=== PATIENT | female | born 1990 | race Caucasian/White ===

== ENCOUNTER 2018-07-29 17:38 | Emergency (ER) | payer OTHER ==
[2018-07-29] MEDS ORDERED: KETOROLAC 30 MG/ML VIAL IVP ONE (17:45)
[2018-07-29] MEDS ORDERED: 0.9 % SODIUM CHLORIDE 1,000 ML BAG IV ONE (17:45)
--- NOTE | 2018-07-29 17:50 | Emergency Department Record ---
History of Present Illness - General Chief Complaint: Abdominal Pain Stated Complaint: abdominal pain Time Seen by Provider: 07/29/18 17:43 Source: Patient Mode of Arrival: Ambulatory Limitations: No limitations - History of Present Illness Initial Comments: 27 yo female presents with LLQ pain that started Sunday morning. The pain has been fairly constant. The pain is sharp in nature. No current vaginal bleeding or discharge. No hematuria or dysuria. No fevers. No current PCP or APPLICATION CONSULTANT. She does have an Nexplanon. Her cycles historically have been irregular. MD Complaint: Abdominal pain -: Days(s) (3) Location: LLQ Radiation: LLQ Migration to: LLQ Quality: Sharp, Stabbing Consistency: Constant Improves With: Rest Worsens With: Movement Context: Other Associated Symptoms: Denies other symptoms - Related Data Patient : No Previous Rx's Medication Instructions Recorded Metronidazole [Flagyl] 500 mg PO BID #14 tablet 07/29/18 Naproxen [Naprosyn] 500 mg PO Q12H #20 tab. 07/29/18 Allergies Allergy/AdvReac Type Severity Reaction Status Date / Time Sulfa (Sulfonamide Allergy ANAPHYLAXIS Verified 07/29/18 17:47 Antibiotics) Review of Systems Constitutional: Denies: Chills, Fever, Malaise, Weakness Eyes: Denies: Eye discharge ENT: Denies: Congestion, Ear pain, Throat pain Respiratory: Denies: Cough, Dyspnea Cardiovascular: Denies: Chest pain Endocrine: Denies: Fatigue Gastrointestinal: Reports: As per HPI, Abdominal pain. Denies: Diarrhea, Nausea , Vomiting Genitourinary: Reports: Abnormal menses. Denies: Discharge, Dysuria, Hematuria , Incontinence, Retention, Urgency Musculoskeletal: Denies: Arthralgia, Back pain, Joint swelling, Myalgia, Neck pain Skin: Denies: Bruising, Rash Neurological: Denies: Headache, Weakness Psychiatric: Denies: Anxiety Hematological/Lymphatic: Denies: Blood Clots, Easy bleeding, Easy bruising, Swollen glands Physical Exam - General General Appearance: Alert, Oriented x3, Cooperative, No acute distress Limitations: No limitations - Head Head exam: Atraumatic, Normal inspection - Eye Eye exam: Normal appearance. negative: Conjunctival injection - ENT ENT exam: Normal exam, Mucous membranes moist Ear exam: Normal external inspection Nasal Exam: Normal inspection Mouth exam: Normal external inspection - Neck Neck exam: Normal inspection - Respiratory Respiratory exam: Normal lung sounds bilaterally. negative: Respiratory distress - Cardiovascular Cardiovascular Exam: Regular rate, Normal rhythm, Normal heart sounds - GI/Abdominal GI/Abdominal exam: Soft, Guarding, Tenderness, Other (Very soft abdomen but tender in the LLQ (only). No mass or hernia). negative: Distended - exam: Adnexal tenderness (L), Normal external exam, Normal speculum exam, Vaginal bleeding (spotting). negative: Adnexal mass (L), Adnexal mass (R), Cervical discharge, cervical motion tenderness, Vaginal discharge, Vaginal erythema - Extremities Extremities exam: Normal inspection - Back Back exam: Denies: CVA tenderness (R), CVA tenderness (L) - Neurological Neurological exam: Alert, Oriented X3 - Psychiatric Psychiatric exam: Normal affect, Normal mood. negative: Agitated, Anxious - Skin Skin exam: Dry, Intact, Normal color, Warm Course - Reevaluation(s) Reevaluation #1: The CBC was negative The CMP was negative The UA is positive for blood, no signs of infection UCG is negative The Wet prep demonstrated few clue cells. 07/29/18 18:34 07/29/18 19:01 The US demonstrated 3.8cm LOC. Normal arterial and venous flow. Irregular lower uterine segment. No FF. Medical Decision Making - Lab Data Result diagrams: 07/29/18 18:05 07/29/18 18:05 Disposition Disposition: Discharge Clinical Impression: Bacterial vaginosis, Pelvic pain, Left ovarian cyst Disposition: Home, Self-Care Condition: (1) Good Instructions: Bacterial Vaginosis (ED), Ovarian Cyst (ED) Additional Instructions: Call the family practice number a new family doctor Return or be seen if worse, fever, vomiting, diarrhea, or any new concerns Prescriptions: Metronidazole [Flagyl] 500 mg PO BID #14 tablet Naproxen [Naprosyn] 500 mg PO Q12H #20 tab.dr Referrals: TERRA BROWN M.D. [MEDICAL DOCTOR] - Rani Keith D.O. [DOCTOR OF OSTEOPATH] - Forms: Patient Portal Access Time of Disposition: 19:06 Quality - Quality Measures Quality Measures: N/A - Blood Pressure Screening Does Patient Have Any of the Following: No Blood Pressure Classification: Pre-Hypertensive BP Reading Systolic Measurement: 128 Diastolic Measurement: 77 Screening for High Blood Pressure: < Pre-Hypertensive BP, F/U Documented > [ G8950] Pre-Hypertensive Follow-up Interventions: Referral to alternative/primary care provider.
[2018-07-29 18:16] LABS: URINE APPEARANCE CLEAR; URINE BILIRUBIN NEGATIVE (NEGATIVE); URINE BLOOD SMALL (NEGATIVE); URINE COLOR YELLOW; URINE GLUCOSE (UA) NEGATIVE (NEGATIVE); URINE KETONE NEGATIVE (NEGATIVE); URINE LEUKOCYTE ESTERASE NEGATIVE (NEGATIVE); URINE NITRITE NEGATIVE (NEGATIVE); URINE PROTEIN NEGATIVE (NEGATIVE); URINE UROBILINOGEN 0.2 E.U./dL (0.20 - 1.00)
[2018-07-29 18:17] LABS: BASO % 0.7 % (0-6); EOS % 2.9 % (0-6); GRAN % 60.1 % (47-80); HEMATOCRIT 41.3 % (35.0-47.0); HEMOGLOBIN 13.7 gm/dl (11.6-16.0); LYMPH % 26.4 % (16-45); MEAN CELL VOLUME 87.5 fl (81-97); MEAN CORPUSCULAR HGB CONC 33.2 g/dl (32-36); MEAN PLATELET VOLUME 10.4 fl (7.4-10.4); MONO % 9.9 % (0-9); PLATELET COUNT 345 K/uL (130-400); RED BLOOD COUNT 4.72 M/uL (3.80-5.40); RED CELL DISTRIBUTION WIDTH 12.5 % (11.5-14.5); WHITE BLOOD COUNT W/O DIFF 6.8 K/uL (4.2-12.2)
[2018-07-29 18:24] LABS: HCG,QUALITATIVE URINE NEGATIVE (NEGATIVE); URINE BACTERIA NONE SEEN; URINE WBC NONE SEEN (0-2/hpf)
[2018-07-29 18:27] LABS: BLOOD UREA NITROGEN 9 mg/dL (6-20)
[2018-07-29 18:28] LABS: CREATININE 0.6 mg/dL (0.5-0.9); EST GLOMERULAR FILTRATION RATE > 60 mL/min
[2018-07-29 18:30] LABS: GLUCOSE,RANDOM 85 mg/dL (74-109)
[2018-07-29] MEDS ORDERED: HYDROCODONE/APAP 5/325MG TABLET PO ONE (19:05)
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
[2018-07-31 15:58] LABS: GC SPECIMEN TYPE Vaginal
== END 2018-07-29 19:23 | disposition home or self-care (01) ==
LOC: ER 17:38
DX: N76.0 Acute vaginitis (principal); N83.202 Unspecified ovarian cyst, left side; R10.2 Pelvic and perineal pain
CPT/HCPCS: 76830; 76856; 80048; 81001; 81025; 85025; 87210; 96374; 99284; J1885; J7030

== ENCOUNTER 2018-09-10 12:27 | Emergency (ER) | payer SELFPAY ==
[2018-09-10] MEDS ORDERED: 0.9 % SODIUM CHLORIDE 1,000 ML BAG IV ONE (12:40)
[2018-09-10] MEDS ORDERED: ONDANSETRON HCL IV 4 MG/2 ML VIAL IVP ONE (12:40)
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
[2018-09-10 13:10] LABS: BASO % 0.6 % (0-6); EOS % 5.6 % (0-6); HEMATOCRIT 42.1 % (35.0-47.0); LYMPH % 26.7 % (16-45); MEAN CELL VOLUME 88.4 fl (81-97); MEAN CORPUSCULAR HEMOGLOBIN 29.4 pg (27-33); MEAN CORPUSCULAR HGB CONC 33.3 g/dl (32-36); MEAN PLATELET VOLUME 10.3 fl (7.4-10.4); MONO % 9.1 % (0-9); PLATELET COUNT 361 K/uL (130-400); RED BLOOD COUNT 4.76 M/uL (3.80-5.40); RED CELL DISTRIBUTION WIDTH 12.5 % (11.5-14.5); WHITE BLOOD COUNT W/O DIFF 6.8 K/uL (4.2-12.2)
[2018-09-10 13:20] LABS: URINE APPEARANCE CLEAR; URINE BILIRUBIN NEGATIVE (NEGATIVE); URINE BLOOD LARGE (NEGATIVE); URINE COLOR YELLOW; URINE GLUCOSE (UA) NEGATIVE (NEGATIVE); URINE KETONE NEGATIVE (NEGATIVE); URINE LEUKOCYTE ESTERASE NEGATIVE (NEGATIVE); URINE NITRITE NEGATIVE (NEGATIVE); URINE PROTEIN NEGATIVE (NEGATIVE); URINE UROBILINOGEN 0.2 E.U./dL (0.20 - 1.00)
[2018-09-10 13:20] LABS: BLOOD UREA NITROGEN 10 mg/dL (6-20); CREATININE 0.6 mg/dL (0.5-0.9); EST GLOMERULAR FILTRATION RATE > 60 mL/min; PARTIAL THROMBOPLASTIN TIME 28.8 SECONDS (24.5-39.1)
[2018-09-10 13:21] LABS: TOTAL PROTEIN 7.4 g/dL (6.6-8.7)
[2018-09-10] MEDS ORDERED: MORPHINE SULFATE 10 MG/ML VIAL IVP ONE (13:22)
[2018-09-10 13:23] LABS: GLUCOSE,RANDOM 97 mg/dL (74-109)
[2018-09-10 13:26] LABS: ALB/GLOB RATIO 1.2 (1.1-1.8); ALBUMIN 4.1 g/dL (4.0-5.0); ALKALINE PHOSPHATASE 88 U/L (45-87); ALT/SGPT 28 U/L (<33); AST/SGOT 21 U/L (10.0-35.0)
[2018-09-10 13:53] LABS: URINE WBC 0 - 2 (0-2/hpf)
[2018-09-10 13:54] LABS: URINE AMORPHOUS SEDIMENT 2+
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
== END 2018-09-10 14:45 | disposition home or self-care (01) ==
LOC: ER 12:27
DX: S30.1XXA Contusion of abdominal wall, initial encounter (principal); S20.212A Contusion of left front wall of thorax, initial encounter; S20.211A Contusion of right front wall of thorax, initial encounter; M54.2 Cervicalgia; R42 Dizziness and giddiness; R11.0 Nausea; V59.49XA Driver of pick-up truck or van injured in collision with other motor vehicles in traffic accident, initial encounter; Y92.488 Other paved roadways as the place of occurrence of the external cause
CPT/HCPCS: 99284 ×2; 96374; 96375; 85025; 85730; 85610; 80053; 81001; 84703; 72125; 71260; 70450; 74177; Q9967; J2405; J2270; J7030

== ENCOUNTER 2019-07-30 05:19 | Emergency (ER) | payer SELFPAY ==
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
[2019-07-30] MEDS: IBUPROFEN 400 MG TABLET PO ONE (06:21)
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
== END 2019-07-30 06:48 | disposition home or self-care (01) ==
LOC: ER 05:19
DX: S60.012A Contusion of left thumb without damage to nail, initial encounter (principal); S20.219A Contusion of unspecified front wall of thorax, initial encounter; S80.811A Abrasion, right lower leg, initial encounter; S60.312A Abrasion of left thumb, initial encounter; V47.5XXA Car driver injured in collision with fixed or stationary object in traffic accident, initial encounter; Y92.410 Unspecified street and highway as the place of occurrence of the external cause
CPT/HCPCS: 71250; 99284